=== PATIENT | male | born 1990 | race American Indian/Alaskan Native ===

== ENCOUNTER 2017-05-19 17:26 | Emergency (ER) | payer SELFPAY ==
[2017-05-19 17:34] VITALS: BP 156/107
[2017-05-19] MEDS ORDERED: PERCOCET 5/325 PO ONE (17:41)
--- NOTE | 2017-05-19 20:17 | Ultrasound Report ---
FINAL REPORT EXAM: US TESTICULAR DOPPLER COMP HISTORY: PAIN AND TENDERNESS HX TORSION Fever TECHNIQUE: Testicular ultrasound PRIORS: None. FINDINGS: The right testicle is homogeneous and measures 4.4 x 2.0 x 2.5 centimeter. Left testicle is homogeneous and measures 4.8 x 2.2 x 3.2 centimeter. Normal color flow is demonstrated in both testicles. The right epididymis measures 1.0 x 0.7 x 0.7 centimeter. The left epididymis measures 0.9 x 0.7 x 0.6 centimeter. There is a left epididymal cyst measuring 0.5 x 0.6 x 0.8 centimeter. There is no evidence of a hydrocele or varicocele. IMPRESSION: No evidence of testicular torsion. 8 millimeter left epididymal cyst.
[2017-05-19 21:24] LABS: Bilirubin,Urine NEG (Negative); Blood,Urine NEG (Negative); Color,Urine Yellow (Yellow); Mucus,Urine 3+ /HPF; Nitrite,Urine NEG (Negative); Urobilinogen,Urine < 2.0 mg/dL (<2.0)
== END 2017-05-20 08:15 ==
LOC: ED 17:26
DX: N50.819 Testicular pain, unspecified (principal); Z53.21 Procedure and treatment not carried out due to patient leaving prior to being seen by health care provider
CPT/HCPCS: 81001; 93975